=== PATIENT | female | born 1990 | race Caucasian/White ===

== ENCOUNTER → 2017-11-26 | Outpatient (CLI) | payer OTHER ==
[~2017-11-26] MED LIST: ADVIL200 M1 PO; ADVIL200 MG PO; ATIVAN0.5 MG PO; BOTOX100 UNITS IJ; IBUPROFEN800 MG PO; METHADONE H5 MG/5 ML PO; METHADOSE10 MG/1 ML PO; SYNTHROID50 MCG PO; TOPAMAX200 MG PO; TYLENOL EXTRA500 MG PO; ZOLOFT25 MG PO
== END | disposition home or self-care (01) ==
LOC: CDC 08:24
DX: Z01.810 Encounter for preprocedural cardiovascular examination (principal); Z86.79 Personal history of other diseases of the circulatory system
CPT/HCPCS: 93000

== ENCOUNTER 2017-11-27 05:39 | Day surgery (SDC) | payer OTHER ==
[~2017-11-27] VITALS: Ht 160 cm; Wt 98.5 kg
[~2017-11-27 05:39] MED LIST changes: -IBUPROFEN800 MG PO
[2017-11-27 06:18] VITALS: BP 116/61
[2017-11-27 06:42] VITALS: BP 116/61
[2017-11-27] MEDS ORDERED: IBUPROFEN800 MG PO (08:21)
[2017-11-27 09:23] VITALS: BP 129/57
[2017-11-27 10:07] VITALS: BP 120/60
== END 2017-11-27 10:11 | disposition home or self-care (01) ==
LOC: SDC
PROC: 0UBC7ZZ Excision of Cervix, Via Natural or Artificial Opening (ICD-10-PCS; principal; 2017-11-27)
DX: N87.1 Moderate cervical dysplasia (principal); F41.9 Anxiety disorder, unspecified; F31.9 Bipolar disorder, unspecified; E66.09 Other obesity due to excess calories; Z68.39 Body mass index [BMI] 39.0-39.9, adult; F17.210 Nicotine dependence, cigarettes, uncomplicated
CPT/HCPCS: J0131; J1100; J1170; J1885; J2250; J2405; J3010; S0020